=== PATIENT | female | born 1995 | race African-American/Black ===

== ENCOUNTER 2019-04-12 19:17 | Emergency (ER) | payer MEDICAID, SELFPAY ==
[2019-04-12 19:22] VITALS: BP 115/64; PULSE 125; RESP 18; TEMP 38.2; O2SAT 97
--- NOTE | 2019-04-12 19:43 | ED.GENADUL_ITS ---
Discharge Plan Disposition Patient Disposition: HOME Condition: Fair Discharge Details Chief Complaint: GenMedical Clinical Impression: Influenza Primary Care Provider: Majo Newman ED Provider: Jess Hopkins Home Meds and New Rx's Prescriptions: New oseltamivir [Tamiflu] 75 mg capsule 75 mg PO Q12H Qty: 8 RF: 0 Continued norethindrone ac-eth estradiol [04/11 (21)] 1-20 mg-mcg Tablet 1 tab PO HS RF: 0 Discharge Instructions Instructions: Oseltamivir (By mouth), Influenza (ED) Additional Instructions: Encourage water intake. You may continue with Tylenol and/or ibuprofen to help with body aches and fever. Please take the Tamiflu as prescribed. This should help to shorten symptoms. Please wash your hands frequently. If you develop difficulty breathing, shortness of breath, inability stay hydrated or other new/worsening symptoms please seek care urgently once again. Please follow-up with Juanito velarde at the end of the week for reevaluation. Stand Alone Forms: School Release Referrals: Majo Newman [Primary Care Provider] - Discharge Data Discharge Date/Time-TO BE ENTERED AT DEPARTURE: 04/12/19 20:55 Medical Decision Making Patient is a pleasant 23-year-old female presenting today with chief complaint of URI. She reports that symptoms began over the past 48 hours. She reports cough, general malaise, body aches, fatigue. States the cough is been nonproductive. She has had chest pain, shortness of breath. She has not taken anything as of yet today for her discomfort. No recent travel. No known sick contacts although patient does live in a dorm. On exam, patient appears fatigued and dehydrated. She is tachycardic at 125 with a temperature of 38.2. Will give Tylenol and ibuprofen to help with fever. Will attempt oral hydration. Her lungs are clear, no acute abnormality noted. Exam is most concerning for influenza. Patient is positive for influenza B. Discussed these findings with the patient. She is tolerating oral hydration well. Heart rate is down to 110. Temp is down to 99.5 ?F. We discussed plan/benefits of Tamiflu. Patient is within the window of treatment. Patient is feeling improved at this time. I am concerned given her living situation that she is at high risk for transference to other people and I encouraged that she wash her hands frequently. I have asked that she follow-up with the [facility] for reevaluation at the end of the week. She was given strict return precautions. All her questions and concerns were addressed and she is in agreement this plan. HPI General Mode of arrival: ambulatory . Date/Time Provider Initiated Documentation: 04/12/19 19:43 . Limitations to Documentation: no limitations . Information obtained by: patient and family (friend) . History of Present Illness 23 year old F presents to the emergency department with the chief complaint of URI with sore throat, cough, fatigue, body aches, described as moderate, with intensity rated at 6. Quality is described as aching, Patient started experiencing this day(s) (2) and it has been constant. No relieving factors improve symptom(s), No exacerbating factors reported . Patient notes cough, fever/chills, malaise and shortness of breath; denies chest pain, diaphoresis, headaches, loss of appetite, nausea/vomiting, rash, syncope and weakness. Patient did receive the following treatments prior to arrival, none Related Data Home Medications Medication Instructions Recorded Confirmed norethindrone ac-eth estradiol 1 tab PO HS 04/12/19 04/12/19 [Junel 04/11 (21)] oseltamivir [Tamiflu] 75 mg PO Q12H #8 cap 04/12/19 Previous Rx's Medication Instructions Recorded oseltamivir [Tamiflu] 75 mg PO Q12H #8 cap 04/12/19 Allergies Allergy/AdvReac Type Severity Reaction Status Date / Time No Known Allergies Allergy Unverified 04/12/19 19:27 General Stated Complaint: GenMedical DANA: 3 Review of Systems Constitutional Constitutional: Reports as per HPI, Denies chills, Reports fatigue, Reports fever(s) and Denies headache(s) Eyes Eyes: Reports as per HPI, Denies eye discharge and Denies irritation ENT Ears, Nose, Mouth, and Throat: Reports as per HPI and Denies headache(s) Cardiovascular Cardiovascular: Reports as per HPI, Denies chest pain and Denies dyspnea Respiratory Respiratory: Reports as per HPI and Denies dyspnea Gastrointestinal Gastrointestinal: Reports as per HPI, Denies abdominal pain, Denies change in bowel habits, Denies nausea and Denies vomiting Integumentary/Breasts Skin/Breast: Reports as per HPI and Denies rash Neurologic Neurologic: Reports as per HPI and Denies headache(s) Endocrine Endocrine: Reports fatigue ON LICENSE OF [facility] Social History Smoking/Tobacco Use Status: Never Alcohol Intake: never Substance use type: does not use Do you feel safe at home: Yes Do you feel safe in your relationship?: Yes Exam Const General: cooperative, comfortable, no acute distress, well developed, well groomed and ill appearing acutely (appears fatigued and dehydrated) Nutritional Appearance: average body habitus and well nourished Orientation: alert and awake [facility] Head: normal to inspection, normocephalic and atraumatic Ears: hearing grossly normal bilaterally, external ears normal and TM's normal bilaterally General nose exam: external nose normal and nares normal Face and sinus: normal facial exam, sinuses nontender and face symmetric Mouth: oral mucosae normal, lip normal, tongue normal, oropharynx normal and moist mucous membranes Teeth and gingiva: dentition normal Throat: posterior oropharynx normal, tonsils normal and uvula midline Eyes General: appearance normal, both eyes and all related structures Neck Neck: normal visual inspection, full ROM, no lymphadenopathy and no meningeal signs Resp Effort & Inspection: normal respiratory effort, able to speak in complete sentences and no respiratory distress Auscultation: clear to auscultation bilaterally, no rales, no rhonchi and no wheezes Cardio Rate: tachycardic Rhythm: regular rhythm Heart Sounds: S1 normal and S2 normal GI Inspection: normal to inspection Palpation: soft, not firm, not rigid and nontender Skin General skin exam: no rashes or lesions noted Neuro General: alert and awake Cognition: normal cognition Speech: speech normal Gait: normal gait Psych Appearance: grossly normal and well kempt Mental Status: mental status grossly normal Speech and Movement: speech and movement normal Course Vital Signs Vital signs: Vital Signs Temperature 36.7 C 04/12/19 19:22 Pulse 125 H 04/12/19 19:22 Respiratory Rate 18 04/12/19 19:22 Blood Pressure 115/64 04/12/19 19:22 Pulse Oximetry 97 04/12/19 19:22 Temperature 36.7 C 04/12/19 19:22 Temperature Source Skin 04/12/19 19:22 Pulse 125 H 04/12/19 19:22 Respiratory Rate 18 04/12/19 19:22 Blood Pressure 115/64 04/12/19 19:22 Blood Pressure Position Sitting 04/12/19 19:22 Pulse Oximetry 97 04/12/19 19:22 Oxygen Delivery Method Room Air 04/12/19 19:22 Oxygen Flow Rate 0 04/12/19 19:22 Pain Level 6 04/12/19 19:22 Lab/Test Results Lab/Test Results: 04/12/19 19:36 Nasopharynx Influenza Types A,B Antigen - Pending
[2019-04-12] MEDS: Acetaminophen 500 MG TAB 1000 MG PO (19:58)
[2019-04-12] MEDS: Ibuprofen 600 MG TAB PO (19:58)
[2019-04-12 20:52] VITALS: BP 110/62; PULSE 108; TEMP 37.1; O2SAT 96
[2019-04-12] MEDS: Oseltamivir 75 MG CAP 150 MG PO (20:57)
[2019-04-12 20:58] VITALS: BP 110/62; PULSE 108; RESP 18; TEMP 37.1; O2SAT 96
== END 2019-04-12 20:55 | disposition home or self-care (01) ==
PROVIDERS: Emergency Provider Physician Assistant
DX: J10.1 Influenza due to other identified influenza virus with other respiratory manifestations (principal); J02.9 Acute pharyngitis, unspecified; R50.9 Fever, unspecified
CPT/HCPCS: 87449; 99283